=== PATIENT | female | born 1970 | race Asian ===

== ENCOUNTER 2020-03-11 20:52 | Inpatient (IN) | payer MEDICAID ==
[~2020-03-11] VITALS: Ht 162.6 cm; Wt 61.7 kg
--- NOTE | 2020-03-11 20:55 | NUR ---
PT CAME IN FOR BACK PAIN AND DIFFUSE CHEST PAIN X A FEW MONTHS. PT DENIES ANY SOB. PT ALSO ENDORSES VAGINAL BLEEDING X FEW MONTHS. + CLOTS +DARK RED. PT AAOX4, RESPIRATIONS EVEN AND UNLABORED ON RA W/ NAD NOTED. PT CONNECTED TO THE ARMORED CAR GUARD AND POX
--- NOTE | 2020-03-11 20:55 | NUR ---
PT STATES DIFFUSE CHEST PAIN WORSENS UPON MOVEMENT. PT DESCRIBES IT STABBING PAIN.
--- NOTE | 2020-03-11 21:38 | NUR ---
Bony quiñones in [facility] - 03/11/20 at 2139 by CASANDRA PT STATES PAIN WORSENS UPON MOVEMENT
--- NOTE | 2020-03-11 21:38 | NUR ---
JOSE GORDILLO AT BEDSIDE FOR EVAL
--- NOTE | 2020-03-11 21:57 | NUR ---
BLOOD COLLECTED AND SENT TO LAB
[2020-03-11] MEDS ORDERED: IV NS 0.9% 1,000 ML BAG IV ONE (22:00)
[2020-03-11] MEDS ORDERED: ONDANSETRON HCL/PF 4 MG/2 ML VIAL ONE (22:00)
[2020-03-11] MEDS ORDERED: ONDANSETRON HCL/PF 4 MG/2 ML VIAL IV ONE (22:00)
[2020-03-11] MEDS ORDERED: MORPHINE SULFATE INJ 2 MG/ML DISP.SYRIN IV ONE (22:00)
[2020-03-11] MEDS ORDERED: MORPHINE SULFATE INJ 4 MG/ML DISP.SYRIN ONE (22:01)
[2020-03-11 22:04] LABS: BASOPHILS # (AUTO) 0.1 /CMM (0.0-0.2); BASOPHILS % (AUTO) 0.9 % (0.0-2.0); EOSINOPHILS % (AUTO) 1.6 % (0.0-6.0); HEMATOCRIT 23 % (33-45); LYMPHOCYTES # (AUTO) 1.5 /CMM (0.8-4.8); LYMPHOCYTES % (AUTO) 23.4 % (20.0-44.0); MEAN CORPUSCULAR HGB CONC 29 g/dl (31.0-36.0); MEAN CORPUSCULAR VOLUME 75 fL (82-100); MONOCYTES # (AUTO) 0.5 /CMM (0.1-1.30); MONOCYTES % (AUTO) 7.7 % (2.0-12.0); NEUTROPHILS # (AUTO) 4.2 /CMM (1.8-8.9); NEUTROPHILS % (AUTO) 66.4 % (43.0-81.0); PLATELET COUNT (AUTO) 313 /CMM (150-450); WHITE BLOOD COUNT (AUTO) 6.4 K/uL (4.3-11.0)
[2020-03-11 22:07] LABS: HEMOGLOBIN 6.7 g/dL (11.5-14.8)
[2020-03-11] MEDS ORDERED: ACETAMINOPHEN ES 500 MG TABLET ONE (22:09)
[2020-03-11 22:16] LABS: CALCIUM, SERUM 8.5 mg/dL (8.5-10.1); CREATININE 0.5 mg/dL (0.6-1.3); POTASSIUM 3.3 mmol/L (3.5-5.1)
--- NOTE | 2020-03-11 22:21 | NUR ---
XRAY AT BEDSIDE
[2020-03-11 22:23] LABS: ALBUMIN 3.2 g/dL (3.4-5.0); BILIRUBIN,DIRECT 0.1 mg/dL (0.0-0.2); BILIRUBIN,TOTAL 0.3 mg/dL (0.2-1.0); TOTAL PROTEIN, SERUM 7.1 g/dL (6.4-8.2)
[2020-03-11] MEDS ORDERED: ACETAMINOPHEN 325 MG TABLET PO ONE (22:30)
--- NOTE | 2020-03-11 22:41 | NUR ---
URINE COLLECTED AND SENT TO LAB
--- NOTE | 2020-03-11 22:43 | NUR ---
ULTRASOUND AT BEDSIDE IN PROGRESS
[2020-03-11 22:46] LABS: BAND % (MANUAL) 1 % (0.0-5.0); NEUTROPHILS % (MANUAL) 70 (42-76)
[2020-03-11 22:47] LABS: LYMPHOCYTES % (MANUAL) 20 % (16-48); MONOCYTES % (MANUAL) 9 % (0-11.0)
[2020-03-11 22:52] LABS: BILIRUBIN,URINE LARGE (NEGATIVE); BLOOD, URINE Large Ery/uL (NEGATIVE); COLOR,URINE RED (YELLOW); LEUKOCYTE ESTERASE ,URINE Large (NEGATIVE); NITRITE, URINE Positive (NEGATIVE); PROTEIN,URINE >=300 mg/dl (NEGATIVE); UGLUCOSE Negative (NEGATIVE)
--- NOTE | 2020-03-11 23:00 | NUR ---
JUDIE COLLECTED AND SENT TO LAB
[2020-03-11 23:16] LABS: BACTERIA,URINE 3+ /HPF (None Seen); RBC,URINE TOO NUMEROUS TO COUN /HPF (0-2); SQUAMOUS EPITHELIAL CELL,UR Few /HPF (None Seen); WBC,URINE TOO NUMEROUS TO COUN /HPF (0-3)
[2020-03-11] MEDS ORDERED: CEFTRIAXONE 1GM BAG (ER ONLY) 1 GM/50 ML PIGGYBACK IV ONE (23:30)
--- NOTE | 2020-03-11 23:39 | NUR ---
JOSE GORDILLO SPEAKING WITH DR. DIOP REGARDING ADMISSION
[2020-03-12] VITALS (9 sets, daily range): BP systolic 120–151; BP diastolic 66–88
[2020-03-12] MEDS ORDERED: Z GUARD REMEDY 2 OZ OINT TP PRN
[2020-03-12] MEDS ORDERED: MAG HYDROX/AL HYDROX/SIMETH 30 ML UDC PO PRN
[2020-03-12] MEDS ORDERED: ACETAMINOPHEN 325 MG TABLET PO PRN
[2020-03-12] MEDS ORDERED: HYDROCODONE/APAP 5/325MG TABLET PO PRN
[2020-03-12] MEDS ORDERED: MAGNESIUM HYDROXIDE 30 ML UDC PO PRN
[2020-03-12] MEDS ORDERED: ONDANSETRON HCL/PF 4 MG/2 ML VIAL IVP PRN
--- NOTE | 2020-03-12 00:01 | NUR ---
NURSE WILL CALL BACK FOR REPORT.
--- NOTE | 2020-03-12 00:30 | NUR ---
home health rn admitting opening notes received patient from er transferred to bed safely, ambulatory steady gair, alert and oriented 4, respirations even and unlabored with equal rise and fall of chest, denies pain at this time, iv site to right ac #20 g intact and patent, no redness, no infiltration present, oriented to staff and call light and kept within reach safety precautions rendered low bed and locked, bed alarm in place, discussed plan of care, patient is scheduled for blood transfusion awaiting blood bank, denies skin issue, belongings list done, all needs attended at this time, will continue to monitor.
--- NOTE | 2020-03-12 00:33 | NUR ---
PATIENT TAKEN UP TO ASSIGNED ROOM FOR CYNDI.
--- NOTE | 2020-03-12 01:15 | NUR ---
supervisor varnish notes received new order for kdur 40 meq po once to replace potassium 3.[address] story noted and carried out, lab called 1 unit prbc not ready at this time.
[2020-03-12] MEDS ORDERED: POTASSIUM CHLORIDE 20 MEQ TAB.PRT.SR PO ONE (01:30)
--- NOTE | 2020-03-12 05:42 | NUR ---
rn practitioner notes 1 unit prbc infused as ordered, no adverse reactions throughout infusion , vs remained stable.
--- NOTE | 2020-03-12 06:43 | NUR ---
management intern closing notes patient in bed sleeping easily arousable ,alert and oriented 4, respirations even and unlabored with equal rise and fall of chest, denies pain at this time, iv site to right ac #20 g intact and patent, no redness, no infiltration present, call light kept within reach safety precautions rendered low bed and locked, bed alarm in place, discussed plan of care, patient tolerated blood transfusion well , no adverse reactions to norco. noted one pad with moderate red bright blood, denies skin issue, all needs attended at this time, fluids offered, will continue to monitor and endorse to next shift.
[2020-03-12 07:54] LABS: BASOPHILS # (AUTO) 0.1 /CMM (0.0-0.2); BASOPHILS % (AUTO) 1.4 % (0.0-2.0); EOSINOPHILS % (AUTO) 1.3 % (0.0-6.0); HEMATOCRIT 27 % (33-45); HEMOGLOBIN 8.3 g/dL (11.5-14.8); LYMPHOCYTES # (AUTO) 1.6 /CMM (0.8-4.8); LYMPHOCYTES % (AUTO) 37.4 % (20.0-44.0); MEAN CORPUSCULAR HGB CONC 31 g/dl (31.0-36.0); MEAN CORPUSCULAR VOLUME 78 fL (82-100); MONOCYTES # (AUTO) 0.3 /CMM (0.1-1.30); MONOCYTES % (AUTO) 6.7 % (2.0-12.0); NEUTROPHILS # (AUTO) 2.3 /CMM (1.8-8.9); NEUTROPHILS % (AUTO) 53.2 % (43.0-81.0); PLATELET COUNT (AUTO) 267 /CMM (150-450); RED BLOOD CELL COUNT(AUTO) 3.49 MIL/uL (4.0-5.2); WHITE BLOOD COUNT (AUTO) 4.3 K/uL (4.3-11.0)
--- NOTE | 2020-03-12 08:50 | NUR ---
ms rn received on bed, awake,alert,oriented x4,not in any form of distress, respirations even and unlabored,no sob noted, lungs are clear,abdomen soft,positive bowel sounds,denies pain at this time, all needs attended.
[2020-03-12 08:54] LABS: CREATININE 0.4 mg/dL (0.6-1.3); MAGNESIUM 2.3 mg/dL (1.8-2.4); POTASSIUM 4.1 mmol/L (3.5-5.1)
--- NOTE | 2020-03-12 09:00 | NUR ---
ms elsa breakfast given,tolerated well, no meds scheduled for today.
[2020-03-12 09:36] LABS: PHOSPHORUS 3.2 mg/dL (2.5-4.9)
[2020-03-12 09:48] LABS: IRON, SERUM 52 ug/dl (50-175); TOTAL IRON BINDING CAPACITY 357 ug/dl (250-450)
--- NOTE | 2020-03-12 12:00 | NUR ---
ms rn patient will be d/c matthew,and to see dr. blackwell for follow up per charge nurse.
[2020-03-12] MEDS ORDERED: CIPR-262 PO (17:37)
--- NOTE | 2020-03-12 17:52 | NUR ---
ms rn called for d/c order, and carreid out, to dc home w/ atb po prescription,all needs attended.
--- NOTE | 2020-03-12 19:00 | NUR ---
MS RN DC INSTRUCTIONS GIVEN, PATIENT WENT HOME W/ PRESCRIPTION, TO HAVE A FOLLOW UP W/ DR. BERNARD,ALL NEEDS ATTENDED.
[2020-03-12] MEDS ORDERED: CEFTRIAXONE 1 G in IV D5W 50 ML IV SCH (22:00)
== END 2020-03-12 19:00 | disposition home or self-care (01) | DRG 532 ==
LOC: ER 20:55 → TELE 03-12 00:07
PROVIDERS: ADMIT Internal Medicine; ATTEND Internal Medicine
PROC: 30233N1 Transfusion of Nonautologous Red Blood Cells into Peripheral Vein, Percutaneous Approach (ICD-10-PCS; principal; 2020-03-12)
DX: D25.9 Leiomyoma of uterus, unspecified (principal); N39.0 Urinary tract infection, site not specified; N92.0 Excessive and frequent menstruation with regular cycle; E87.6 Hypokalemia; D50.9 Iron deficiency anemia, unspecified; D62 Acute posthemorrhagic anemia; D55.0 Anemia due to glucose-6-phosphate dehydrogenase [G6PD] deficiency; E43 Unspecified severe protein-calorie malnutrition; Z68.23 Body mass index [BMI] 23.0-23.9, adult; Z20.828 Contact with and (suspected) exposure to other viral communicable diseases
CPT/HCPCS: 36415; 71045-TC; 76856-TC; 80048-TC; 80076-TC; 81001; 83540-TC; 83690-TC; 83735-TC; 84100-TC; 84484-TC; 84703-TC; 85025-TC; 85045-TC; 85730-TC; 86850-TC; 87081-TC; 87086-TC; C9803; G0378; J0696; J2270; J2405; J7030; J7050; J7060; P9016-BL; U0003

== ENCOUNTER 2021-11-15 08:56 | Emergency (ER) | payer MEDICAID ==
[~2021-11-15] VITALS: Ht 162.6 cm; Wt 61.2 kg
[~2021-11-15 08:56] MED LIST: CIPR-262 PO
--- NOTE | 2021-11-15 09:10 | NUR ---
BIBFAMILY W/ C/O COUGH [id number], STATES "HARD TO BREATHE WHEN I COUGH"; NOT VACCINATED AGAINST COVID. TO ER 19, AWAITING MD SANTANA.
--- NOTE | 2021-11-15 09:40 | NUR ---
COVID SWAB DONE AND SENT TO LAB
[2021-11-15] MEDS ORDERED: BENZ-13 PO (10:31)
[2021-11-15] MEDS ORDERED: IBUP-1955 PO (10:31)
--- NOTE | 2021-11-15 10:39 | NUR ---
Patient discharged to home in stable condition. Written and verbal after care instructions given. Patient verbalizes understanding of instruction.
[2021-11-15 10:40] VITALS: BP 141/80
== END 2021-11-15 10:40 | disposition home or self-care (01) ==
LOC: ER 09:08
DX: J06.9 Acute upper respiratory infection, unspecified (principal); B97.89 Other viral agents as the cause of diseases classified elsewhere; Z20.822 Contact with and (suspected) exposure to COVID-19; Z28.310 Unvaccinated for COVID-19; Z88.2 Allergy status to sulfonamides
CPT/HCPCS: 99284; 71045; U0003; C9803